=== PATIENT | male | born 1995 | race Caucasian/White ===

== ENCOUNTER 2021-03-13 04:13 | Emergency (ER) | payer BC ==
[~2021-03-13] VITALS: Ht 165.1 cm; Wt 77.3 kg
[2021-03-13 04:20] VITALS: BP 120/75
== END 2021-03-13 05:48 | disposition home or self-care (01) ==
LOC: ER 04:14
DX: R07.89 Other chest pain (principal); Z20.822 Contact with and (suspected) exposure to COVID-19; Z72.89 Other problems related to lifestyle
CPT/HCPCS: 36415; 93005; 99284; U0003; U0005